=== PATIENT | female | born 1990 | race Caucasian/White ===

== ENCOUNTER 2019-07-17 18:46 | Emergency (ER) | payer MEDICAID ==
[~2019-07-17] VITALS: Ht 162.6 cm; Wt 60.8 kg
--- NOTE | 2019-07-17 19:35 | NUR ---
Dr TENA IS AT BEDSIDE AND GAVE PATIENT AN UPDATE OF RESULTS OF LAB WORKS , AND EXPLAIN THE DIAGNOSIS : ALLERGIC RHINITIS , VERBALIZES UNDERSTANDING
--- NOTE | 2019-07-17 19:40 | NUR ---
Patient discharged to home in stable conditon. Written and verbal after care instructions given. Patient verbalizes understanding of instructions. PRESCRIPTION GIVEN AND EXPLAINED , AND VERBALIZES UNDERSTANDING , AMBULATES WITH STEADY GAIT , NO BELONGINGS
[2019-07-17 19:43] VITALS: BP 124/79
== END 2019-07-17 19:44 | disposition home or self-care (01) ==
LOC: ER 18:50
DX: J30.9 Allergic rhinitis, unspecified (principal)
CPT/HCPCS: 87400; A4663

== ENCOUNTER 2019-09-23 00:36 | Emergency (ER) | payer MEDICAID, OTHER ==
[~2019-09-23] VITALS: Ht 167.6 cm; Wt 63.5 kg
--- NOTE | 2019-09-23 00:51 | NUR ---
Dr. Melchor at bedside for MSE
[2019-09-23 01:19] LABS: *BILIRUBIN,URIN NEGATIVE (NEGATIVE); *BLOOD, URINE 2+ (NEGATIVE); *COLOR,URINE YELLOW (YELLOW); *KETONES,URINE TRACE (NEGATIVE); *UROBILINOGEN,URINE 0.2 E.U./dl (NORMAL); LEUKOCYTE ESTERASE ,URINE NEGATIVE (NEGATIVE); NITRITE, URINE NEGATIVE (NEGATIVE); UGLUCOSE NEGATIVE (NEGATIVE)
[2019-09-23 01:32] LABS: *CLARITY,URINE SLIGHTLY CLOUDY (CLEAR)
[2019-09-23 01:33] LABS: *URINE HCG, QUAL NEGATIVE (NEGATIVE)
[2019-09-23 01:36] LABS: BACTERIA,URINE MANY /HPF (NONE SEEN); CALCIUM OXALATE CRYSTALS,UR MANY /HPF (NONE SEEN); SQUAMOUS EPITHELIAL CELL,UR MODERATE /HPF (NONE SEEN); WBC,URINE 0-3 /HPF (0-3)
[2019-09-23 01:37] LABS: MUCUS,URINE MODERATE /LPF (0-FEW)
--- NOTE | 2019-09-23 01:51 | NUR ---
Patient discharged to home in stable condition. Written and verbal after care instructions given. Patient verbalizes understanding of instructions. Stressed follow up or return to ER for worsening s/s. Patient ambulating with steady gait. NAD noted
[2019-09-23 01:57] VITALS: BP 128/82
== END 2019-09-23 01:51 | disposition home or self-care (01) ==
LOC: ER 00:41
DX: B34.9 Viral infection, unspecified (principal); R05 Cough; Z20.828 Contact with and (suspected) exposure to other viral communicable diseases; R39.15 Urgency of urination
CPT/HCPCS: 84703; 87086; A4663

== ENCOUNTER 2019-11-03 13:12 | Emergency (ER) | payer OTHER ==
[~2019-11-03] VITALS: Ht 165.1 cm; Wt 62.6 kg
--- NOTE | 2019-11-03 14:49 | NUR ---
Patient discharged to home in stable condition. Written and verbal after care instructions given. Patient verbalizes understanding of instructions. Stressed follow up or return to ER for worsening s/s.
[2019-11-03 14:50] VITALS: BP 101/77
== END 2019-11-03 14:51 | disposition home or self-care (01) ==
LOC: ER 13:12
DX: R43.9 Unspecified disturbances of smell and taste (principal); R07.9 Chest pain, unspecified; Z20.828 Contact with and (suspected) exposure to other viral communicable diseases
CPT/HCPCS: 71045; 99284; U0003; A4663

== ENCOUNTER 2020-06-28 17:22 | Emergency (ER) | payer OTHER ==
[~2020-06-28] VITALS: Ht 167.6 cm; Wt 66.7 kg
[2020-06-28] MEDS ORDERED: METOCLOPRAMIDE HCL 10 MG/2 ML VIAL IV ONE (18:15)
[2020-06-28] MEDS ORDERED: KETOROLAC TROMETHAMINE 15 MG INJ IVP ONE (18:15)
[2020-06-28] MEDS ORDERED: IV NORMAL SALINE 1000 ML BAG IV ONE (18:15)
--- NOTE | 2020-06-28 18:20 | NUR ---
Pt refused Reglan and Toradol, states she does not have pain or nausea anymore. notified.
[2020-06-28] MEDS ORDERED: METOCLOPRAMIDE HCL 10 MG/2 ML VIAL ONE (18:22)
[2020-06-28] MEDS ORDERED: KETOROLAC TROMETHAMINE 15 MG INJ ONE (18:22)
[2020-06-28 18:27] LABS: BASOPHILS % (AUTO) 0.3 % (0.0-2.0); EOSINOPHILS % (AUTO) 0.1 % (0.0-7.0); HEMATOCRIT 38.1 % (31.2-41.9); HEMOGLOBIN 13.1 g/dL (10.9-14.3); LYMPHOCYTES # (AUTO) 0.5 K/uL (20.0-40.0); MEAN CORPUSCULAR HEMOGLOBIN 31.4 uug (24.7-32.8); MEAN CORPUSCULAR HGB CONC 34 g/dL (32.3-35.6); MEAN CORPUSCULAR VOLUME 91.6 fL (75.5-95.3); MONOCYTES # (AUTO) 0.4 K/uL (2.0-10.0); MONOCYTES % (AUTO) 4.4 % (0.0-11.0); NEUTROPHILS % (AUTO) 90.2 % (38.5-71.5); PLATELET COUNT (AUTO) 176 K/uL (179-408); RED BLOOD CELL COUNT(AUTO) 4.16 MIL/uL (3.63-4.92)
[2020-06-28 18:29] LABS: CREATININE 0.8 mg/dL (0.6-1.3); POTASSIUM 4.4 mmol/L (3.5-5.1)
[2020-06-28 18:35] LABS: BILIRUBIN,DIRECT 0.1 mg/dL (0.0-0.2); BILIRUBIN,TOTAL 0.5 mg/dL (0.2-1.0); TOTAL PROTEIN, SERUM 6.9 g/dL (6.4-8.2)
--- NOTE | 2020-06-28 18:56 | NUR ---
Assumed care of patient. No acute distress noted. VSS. Awaiting further plan of care updates by ER MD
[2020-06-28] MEDS ORDERED: IOHEXOL 300MG/ML 100 ML INFUS..BTL ONE (19:00)
[2020-06-28] MEDS ORDERED: IV NORMAL SALINE 250 ML IV ONE (19:00)
[2020-06-28] MEDS ORDERED: SWABABLE VALVE TRANSFER SET EA MC ONE (19:00)
--- NOTE | 2020-06-28 19:43 | NUR ---
Patient taken to CT at this time.
--- NOTE | 2020-06-28 20:12 | NUR ---
Patient back from CT. No acute distress noted. VSS
[2020-06-28] MEDS ORDERED: LANS30CA54 PO (21:19)
[2020-06-28 21:22] VITALS: BP 125/70
--- NOTE | 2020-06-28 21:22 | NUR ---
Patient discharged to home in stable condition. Written and verbal after care instructions given. Patient verbalizes understanding of instructions. Stressed follow up or return to ER for worsening s/s. Ambulated from ER with stable gait. All belongings with patient.
== END 2020-06-28 21:23 | disposition home or self-care (01) ==
LOC: ER 17:23
DX: R10.13 Epigastric pain (principal); N83.9 Noninflammatory disorder of ovary, fallopian tube and broad ligament, unspecified; Z80.7 Family history of other malignant neoplasms of lymphoid, hematopoietic and related tissues; R11.10 Vomiting, unspecified
CPT/HCPCS: 36415; 74177; 76705; 76856; 80048; 80076; 83690; 84484; 84702; 85025; 96360; 99285; Q9967; 70030-TC; A4663; J1885; J2765; J7030; J7050

== ENCOUNTER 2020-12-12 01:27 | Emergency (ER) | payer OTHER ==
[~2020-12-12] VITALS: Ht 167.6 cm; Wt 67.1 kg
[~2020-12-12 01:27] MED LIST: LANS30CA54 PO
--- NOTE | 2020-12-12 01:44 | NUR ---
Dr Sin into eval patient.
[2020-12-12 02:20] LABS: HEMATOCRIT 38.3 % (31.2-41.9); MEAN CORPUSCULAR HEMOGLOBIN 30.9 uug (24.7-32.8); MEAN CORPUSCULAR VOLUME 91.4 fL (75.5-95.3); PLATELET COUNT (AUTO) 264 K/uL (179-408)
[2020-12-12 02:23] LABS: CREATININE 0.8 mg/dL (0.6-1.3); POTASSIUM 3.4 mmol/L (3.5-5.1)
[2020-12-12 02:36] LABS: BILIRUBIN,DIRECT 0.1 mg/dL (0.0-0.2); BILIRUBIN,TOTAL 0.2 mg/dL (0.2-1.0); TOTAL PROTEIN, SERUM 7.8 g/dL (6.4-8.2)
[2020-12-12 02:38] LABS: *URINE HCG, QUAL NEGATIVE (NEGATIVE)
[2020-12-12] MEDS ORDERED: LORA0.5T48 PO (02:43)
[2020-12-12] MEDS ORDERED: LORAZEPAM 0.5 MG TABLET PO ONE (02:45)
[2020-12-12] MEDS ORDERED: diphenhydrAMINE 25 MG CAP PO ONE ×2 (02:45→02:50)
[2020-12-12] MEDS ORDERED: LORAZEPAM 1 MG TABLET ONE (02:50)
[2020-12-12 02:57] VITALS: BP 110/75
--- NOTE | 2020-12-12 02:57 | NUR ---
Patient discharged to home in stable condition with [employer] taking patient home. Written and verbal after care instructions given. Patient verbalizes understanding of instructions. Stressed follow up or return to ER for worsening s/s.
== END 2020-12-12 02:58 | disposition home or self-care (01) ==
LOC: ER 01:31
DX: G47.00 Insomnia, unspecified (principal); R07.9 Chest pain, unspecified; R06.02 Shortness of breath; R00.2 Palpitations; F41.9 Anxiety disorder, unspecified; Z20.822 Contact with and (suspected) exposure to COVID-19
CPT/HCPCS: 36415; 71045; 80048; 80076; 83880; 84484; 84703; 85025; 87426; 93005; 99285; Q0163; 70030-TC; A4663